=== PATIENT | female | born 1960 | race Caucasian/White ===

== ENCOUNTER 2023-12-26 07:11 | Emergency (ER) | payer BC ==
[2023-12-26] MEDS: Lidocaine 1% with EPINEPHrine 1:100,000 20 ML MDV INJECT ONE (07:53)
[2023-12-26] MEDS: Triamcinolone Acetonide 40 MG/ML 1 ML SDV INJECT ONE (07:54)
== END 2023-12-26 08:29 | disposition home or self-care (01) ==
LOC: DL.ED 07:11
DX: R51.9 Headache, unspecified (principal); I10 Essential (primary) hypertension; Z88.1 Allergy status to other antibiotic agents; Z88.8 Allergy status to other drugs, medicaments and biological substances; Z86.16 Personal history of COVID-19
CPT/HCPCS: 70450; 96372; 99283; 99284; J3301; J3490

== ENCOUNTER 2025-02-28 06:18 | Day surgery (SDC) | payer BC ==
[~2025-02-28 06:18] MED LIST: Propofol 200 MG/20 ML SDV ONE
[2025-02-28] MEDS ORDERED: Propofol 200 MG/20 ML SDV IV ONE (06:19)
[2025-02-28] MEDS ORDERED: Lidocaine 2% 20 ML MDV NERVRT ONE (06:19)
[2025-02-28] MEDS ORDERED: Lactated Ringers 1,000 ML IV ONE (06:19)
[2025-02-28] MEDS: Lactated Ringers 1,000 ML IV SCH (06:45)
== END 2025-02-28 09:30 | disposition home or self-care (01) ==
LOC: DL.ENDO 06:18
PROVIDERS: ATTEND Internal Medicine Gastroenterology
DX: Z12.11 Encounter for screening for malignant neoplasm of colon (principal); R19.5 Other fecal abnormalities; D12.0 Benign neoplasm of cecum; I10 Essential (primary) hypertension; J45.909 Unspecified asthma, uncomplicated; E78.5 Hyperlipidemia, unspecified; Z88.1 Allergy status to other antibiotic agents; Z91.040 Latex allergy status; Z88.8 Allergy status to other drugs, medicaments and biological substances
CPT/HCPCS: 45378; J2003; J2704; J7120; 00811